=== PATIENT | male | born 1960 ===

== ENCOUNTER → 2022-05-11 09:12 | Outpatient (CLI) | payer OTHER, SELFPAY ==
--- NOTE | ~2022-05-11 | MR_ITS ---
MRI of the chest CLINICAL HISTORY: Ruptured pectoralis major muscle TECHNIQUE: Axial T1-weighted, T1 fat-sat, and STIR images, coronal T1-weighted and STIR images, and s agittal T1-weighted and STIR images were performed. FINDINGS: There is mild amorphous edema extensively involving the medial to central portion of the ri ght pectoralis major muscle belly. No fluid-filled tear of the muscle evident. Right pectoralis major tendon is intact. Remaining visualized musculature about the chest demonstrate normal signal intensity. No other periph eral soft tissue abnormality or fluid collection evident. No joint effusion identified at the right s [place]. Incidental note is made of a 3.5 cm T2 hyperintense lesion in the posterior right hepatic lobe, possi nicole cyst. No gross mediastinal or pulmonary abnormality seen. IMPRESSION: Findings compatible with grade 1 muscle strain of the right pectoralis major muscle. No fluid-filled tear or tendon injury evident. Incidental note of 3.5 cm T2 hyperintense lesion in the posterior right hepatic lobe. This could repr esent a cyst, but is incompletely evaluated on this exam. Consider additional workup/evaluation as in dicated. Reviewed, dictated and finalized at location . IMPRESSION: Findings compatible with grade 1 muscle strain of the right pectoralis major mu scle. No fluid-filled tear or tendon injury evident. Incidental note of 3.5 cm T2 hyperintense lesion in the posterior right hepatic lobe. This could represent a cyst, but is incompletely evaluated on this exam. Consider additional workup/evaluation as indicated.
== END ==
PROVIDERS: PCP Family Medicine; Visit Provider Family Medicine
DX: S29.011D Strain of muscle and tendon of front wall of thorax, subsequent encounter (principal); R07.89 Other chest pain; M79.601 Pain in right arm; X58.XXXD Exposure to other specified factors, subsequent encounter
CPT/HCPCS: 71550